=== PATIENT | male | born 2000 | race Caucasian/White ===

== ENCOUNTER 2023-09-18 16:26 | Emergency (ER) | payer MEDICAID ==
[~2023-09-18] VITALS: Ht 172.7 cm; Wt 100.0 kg
[2023-09-18 16:28] VITALS: BP 152/99; PULSE 105; RESP 12; O2SAT 97
[2023-09-18] MEDS ORDERED: LIDOCAINE HCL/PF 1% 10 MG/ML 5ML VIAL INFIL ONE (17:45)
[2023-09-18] MEDS ORDERED: BACITRACIN ZINC OINT UDPKT TOP ONE (17:45)
[2023-09-18 18:23] VITALS: TEMP 98.3
[2023-09-18] MEDS: ACETAMINOPHEN 325MG TABLET PO ONE (18:23)
[2023-09-18] MEDS: TETANUS, DIPHTHERIA, PERTUSSIS VAC/PF 0.5ML (>10YR OLD) IM ONE (18:30)
== END 2023-09-18 20:29 | disposition home or self-care (01) ==
LOC: ER 16:26
DX: S61.213A Laceration without foreign body of left middle finger without damage to nail, initial encounter (principal); X58.XXXA Exposure to other specified factors, initial encounter; Y93.89 Activity, other specified; Y92.89 Other specified places as the place of occurrence of the external cause; Y99.8 Other external cause status
CPT/HCPCS: 90715; 12001; 90471; 99283; J3490; Z7610